=== PATIENT | female | born 1945 | race Caucasian/White ===

== ENCOUNTER 2017-08-25 11:37 | Emergency (ER) | payer MEDICARE ==
[~2017-08-25] VITALS: Ht 168.9 cm; Wt 88.0 kg
[~2017-08-25 11:37] MED LIST: LEVOTHYROXIN25 MCG PO; LIPITOR10 MG PO; OMEPRAZOLE20 MG PO
[2017-08-25] MEDS ORDERED: LEVOTHYROXIN50 MCG PO (13:37)
[2017-08-25] MEDS ORDERED: MELOXICAM15 MG PO (13:38)
[2017-08-25] MEDS ORDERED: ATORVASTATIN CA10 MG PO (13:38)
[2017-08-25] MEDS ORDERED: CEPHALEXIN500 M1 PO (14:06)
[2017-08-25 14:25] VITALS: BP 129/80
== END 2017-08-25 14:28 | disposition home or self-care (01) ==
LOC: ED 11:37
DX: L03.116 Cellulitis of left lower limb (principal); R22.42 Localized swelling, mass and lump, left lower limb; M79.605 Pain in left leg; E78.5 Hyperlipidemia, unspecified; Z98.890 Other specified postprocedural states

== ENCOUNTER 2020-03-21 07:26 | Day surgery (SDC) | payer MEDICARE ==
--- NOTE | 2020-03-20 10:21 | NUR ---
PER DR HOWELL THE U/S SHOWED LEFT AXILLARY LYMPH NODE AND WANTS TO PROCEED PREVIOUSLY DISCUSSED. I ADVISED THE PATIENT THE SAME. SHE STATED SHE UNDERSTOOD.
[~2020-03-21 07:26] MED LIST changes: +ATORVASTATIN CA10 MG PO; +BRIMONIDINE0.2 % OU; +BUPROPION150 M3 PO; +CEPHALEXIN500 M1 PO; +CYANOCOBAL1000 MCG/M IM; +DORZOLAMIDE HCL/1 ML OU; +LEVOTHYROXIN50 MCG PO; +MELOXICAM15 MG PO; +PRESERVISION AREDS 2 PO; +TRAZODONE50 MG PO; +XALATAN 0.005%2.5 ML OU
[2020-03-21] MEDS ORDERED: PERCOCET 5/325M1 TAB PO (09:37)
[2020-03-21 10:03] VITALS: BP 133/65
== END 2020-03-21 10:19 | disposition home or self-care (01) ==
LOC: ORM 07:26
PROVIDERS: ATTEND Surgery
PROC: 0HBU0ZZ Excision of Left Breast, Open Approach (ICD-10-PCS; principal; 2020-03-21)
DX: C44.591 Other specified malignant neoplasm of skin of breast (principal); E03.9 Hypothyroidism, unspecified; E78.5 Hyperlipidemia, unspecified; F41.9 Anxiety disorder, unspecified; Z20.828 Contact with and (suspected) exposure to other viral communicable diseases
CPT/HCPCS: J0131; J1100

== ENCOUNTER 2022-10-08 03:28 | Emergency (ER) | payer MEDICARE ==
[~2022-10-08] VITALS: Ht 165.1 cm; Wt 84.0 kg
[~2022-10-08 03:28] MED LIST changes: +AEROCHAMBER PLUS IN; +ALBUTEROL SUL0.083 % IN; +ALBUTEROL1 IN; +IPRATROPIUM/ IN; +LASIX 20 MG TAB20 MG PO; +LEXAPRO10 MG PO; +LEXAPRO20 MG PO; +LEXAPRO5 MG PO; +MEDDOSEPAK PO; +NEBULIZER IN; +NEBULIZER KIT/TUBING IN; +NEURONTIN100 MG PO; +NORVASC5 M1 PO; +PERCOCET 5/325M1 TAB PO; +SPIRIVA HANDIHALER IN; +TRAZODONE100 MG PO; +VENTOLIN HFA IN
[2022-10-08 04:37] LABS: BASO% 0.3 % (0-3); EOS% 6.3 % (0-8); HEMATOCRIT 43.7 % (37.0-47.0); HEMOGLOBIN 13.8 g/dl (12.0-16.0); IMMATURE GRANULOCYTES 0.9 % (0.0-5.0); LYMPH% 23.4 % (15-41); MEAN CELL VOLUME 107.4 fL CALC (80.0-100.0); MEAN CORPUSCULAR HGB 33.9 pG CALC (26.0-32.0); MEAN CORPUSCULAR HGB CONC 31.6 g/dL CAL (32.0-36.0); MONO% 8.7 % (2-13); NEUT# 4.19 thou/uL (2.00-7.15); NEUT% 60.4 % (42-76); RED BLOOD COUNT 4.07 mill/uL (4.20-5.60); RED CELL DISTRI WIDTH 13.2 % (11.5-15.5)
[2022-10-08 04:40] LABS: URINE BILIRUBIN - DIPSTICK NEGATIVE (NEGATIVE); URINE BLOOD DIPSTICK SMALL (NEGATIVE); URINE COLOR YELLOW; URINE GLUCOSE - DIPSTICK NEGATIVE (NEGATIVE); URINE KETONE NEGATIVE (NEGATIVE); URINE PROTEIN - DIPSTICK NEGATIVE (NEG-TRACE); URINE UROBILINOGEN - DIPSTICK 0.2 E.U./dL (0.2)
[2022-10-08 04:47] LABS: URINE BACTERIA FEW hpf; URINE EPITHELIAL CELLS FEW EPI/hpf (0-FEW); URINE LEUK ESTERASE NEGATIVE (NEGATIVE); URINE NITRITE - DIPSTICK NEGATIVE (Negative); URINE WBC 0-2 WBC/hpf (0-5)
[2022-10-08 04:52] LABS: ALBUMIN 4.2 g/dL (3.2-5.0); ALKALINE PHOSPHATASE 73 u/l (38-126); ANION GAP 11 (6-22 (CALC)); BUN 21 mg/dL (8-23); BUN/CREATININE RATIO 35 (12-20 (CALC)); CARBON DIOXIDE 29 mmol/l (22-30); CHLORIDE 103 mmol/l (95-108); CREATININE 0.6 mg/dL (0.5-1.0); GFR FOR AFR.AMER. > 60 ML/MIN (>=60 (CALC)); GFR OTHER RACES > 60 ML/MIN (>=60 (CALC)); POTASSIUM 4.1 mmol/l (3.5-5.1); SGOT/AST 34 u/l (9-36); SODIUM 138 mmol/l (137-146); TOTAL PROTEIN 7.4 g/dL (6.3-8.2)
[2022-10-08 04:54] LABS: BILIRUBIN, TOTAL 0.6 mg/dL (0.02-1.3)
[2022-10-08] MEDS ORDERED: MEDDOSEPAK PO (06:07)
[2022-10-08] MEDS ORDERED: ZITHROMAX250 MG PO (06:07)
[2022-10-08 06:27] VITALS: BP 143/69
== END 2022-10-08 06:47 | disposition home or self-care (01) ==
LOC: ED 03:28
PROVIDERS: Emergency Medicine
DX: J44.1 Chronic obstructive pulmonary disease with (acute) exacerbation (principal); E03.9 Hypothyroidism, unspecified; E78.5 Hyperlipidemia, unspecified; F41.9 Anxiety disorder, unspecified; Z20.822 Contact with and (suspected) exposure to COVID-19

== ENCOUNTER 2023-06-12 11:43 | Inpatient (IN) | payer MEDICARE ==
[~2023-06-12] VITALS: Ht 167.6 cm; Wt 87.2 kg
[2023-06-12] VITALS (11 sets, daily range): BP systolic 114–144; BP diastolic 62–85
[~2023-06-12 11:43] MED LIST changes: +AZITHROMYCIN500 MG PO; +IPRATROPIU0.5 MG/3 M IN; +LASIX20 MG PO; +LISINOPRIL5 MG PO; +LORATADINE10 M1 PO; +MONTELUKAST SOD10 MG PO; +OS-CAL 500500 M1 PO; +PANTOPRAZOLE SO40 M1 PO; +POTASSIUM CHLO10 MEQ PO; +PREDNISONE10 MG PO; +PULMICORT0.5 MG; +VITAMIN B-121000 MCG PO; +ZITHROMAX250 MG PO; +[UNRECOGNIZED DRUG - OTHER] IN
[2023-06-12 12:30] LABS: BASO% 0.4 % (0-3); EOS% 2.4 % (0-8); HEMATOCRIT 34.4 % (37.0-47.0); IMMATURE GRANULOCYTES 0.6 % (0.0-5.0); LYMPH% 27.1 % (15-41); MEAN CELL VOLUME 107.8 fL CALC (80.0-100.0); MEAN CORPUSCULAR HGB 34.5 pG CALC (26.0-32.0); MONO% 13.2 % (2-13); NEUT# 2.99 thou/uL (2.00-7.15); NEUT% 56.3 % (42-76); RED BLOOD COUNT 3.19 mill/uL (4.20-5.60)
[2023-06-12 12:31] LABS: ALBUMIN 3.7 g/dL (3.2-5.0); ALKALINE PHOSPHATASE 181 u/l (38-126); ANION GAP 9 (6-22 (CALC)); BILIRUBIN, TOTAL 0.4 mg/dL (0.02-1.3); BUN 19 mg/dL (8-23); BUN/CREATININE RATIO 27 (12-20 (CALC)); CARBON DIOXIDE 31 mmol/l (22-30); CHLORIDE 106 mmol/l (95-108); CREATININE 0.7 mg/dL (0.5-1.0); GFR FOR AFR.AMER. > 60 ML/MIN (>=60 (CALC)); GFR OTHER RACES > 60 ML/MIN (>=60 (CALC)); POTASSIUM 4.2 mmol/l (3.5-5.1); SGOT/AST 33 u/l (9-36); SODIUM 141 mmol/l (137-146); TOTAL PROTEIN 7.2 g/dL (6.3-8.2)
[2023-06-13] VITALS (7 sets, daily range): BP systolic 113–162; BP diastolic 59–87
[2023-06-13 05:57] LABS: BASO% 0.1 % (0-3); HEMATOCRIT 31.7 % (37.0-47.0); HEMOGLOBIN 10.4 g/dl (12.0-16.0); IMMATURE GRANULOCYTES 0.3 % (0.0-5.0); MEAN CELL VOLUME 105.3 fL CALC (80.0-100.0); MEAN CORPUSCULAR HGB 34.6 pG CALC (26.0-32.0); MEAN CORPUSCULAR HGB CONC 32.8 g/dL CAL (32.0-36.0); MONO% 4.8 % (2-13); NEUT# 5.92 thou/uL (2.00-7.15); NEUT% 78.8 % (42-76); RED BLOOD COUNT 3.01 mill/uL (4.20-5.60); RED CELL DISTRI WIDTH 12.6 % (11.5-15.5)
[2023-06-13 06:26] LABS: ANION GAP 8 (6-22 (CALC)); BUN 17 mg/dL (8-23); BUN/CREATININE RATIO 28 (12-20 (CALC)); CARBON DIOXIDE 27 mmol/l (22-30); CHLORIDE 107 mmol/l (95-108); CREATININE 0.6 mg/dL (0.5-1.0); GFR FOR AFR.AMER. > 60 ML/MIN (>=60 (CALC)); GFR OTHER RACES > 60 ML/MIN (>=60 (CALC)); POTASSIUM 3.6 mmol/l (3.5-5.1); SODIUM 138 mmol/l (137-146)
[2023-06-14 03:29] VITALS: BP 110/54
[2023-06-14 05:12] LABS: BASO% 0.1 % (0-3); HEMATOCRIT 31.9 % (37.0-47.0); HEMOGLOBIN 10.5 g/dl (12.0-16.0); IMMATURE GRANULOCYTES 0.3 % (0.0-5.0); LYMPH% 15.9 % (15-41); MEAN CELL VOLUME 106.3 fL CALC (80.0-100.0); MEAN CORPUSCULAR HGB CONC 32.9 g/dL CAL (32.0-36.0); MONO% 2.7 % (2-13); NEUT# 7.06 thou/uL (2.00-7.15)
[2023-06-14 05:20] LABS: ANION GAP 13 (6-22 (CALC)); BUN 23 mg/dL (8-23); BUN/CREATININE RATIO 36 (12-20 (CALC)); CARBON DIOXIDE 23 mmol/l (22-30); CHLORIDE 106 mmol/l (95-108); CREATININE 0.6 mg/dL (0.5-1.0); GFR FOR AFR.AMER. > 60 ML/MIN (>=60 (CALC)); GFR OTHER RACES > 60 ML/MIN (>=60 (CALC)); POTASSIUM 3.8 mmol/l (3.5-5.1); SODIUM 139 mmol/l (137-146)
[2023-06-14 06:59] VITALS: BP 126/73
[2023-06-14 10:33] VITALS: BP 122/67
[2023-06-14 15:01] VITALS: BP 105/59
[2023-06-14 19:08] VITALS: BP 108/62
[2023-06-14 23:05] VITALS: BP 116/61
[2023-06-15 04:24] VITALS: BP 144/78
[2023-06-15 04:57] VITALS: BP 144/78
[2023-06-15 05:29] LABS: BASO% 0.1 % (0-3); HEMATOCRIT 32.7 % (37.0-47.0); HEMOGLOBIN 10.5 g/dl (12.0-16.0); IMMATURE GRANULOCYTES 0.7 % (0.0-5.0); LYMPH% 15.1 % (15-41); MEAN CELL VOLUME 106.5 fL CALC (80.0-100.0); MEAN CORPUSCULAR HGB 34.2 pG CALC (26.0-32.0); MEAN CORPUSCULAR HGB CONC 32.1 g/dL CAL (32.0-36.0); MONO% 4.5 % (2-13); NEUT# 8.47 thou/uL (2.00-7.15); NEUT% 79.6 % (42-76); RED BLOOD COUNT 3.07 mill/uL (4.20-5.60)
[2023-06-15 05:49] LABS: ANION GAP 11 (6-22 (CALC)); BUN 24 mg/dL (8-23); BUN/CREATININE RATIO 36 (12-20 (CALC)); CHLORIDE 102 mmol/l (95-108); CREATININE 0.7 mg/dL (0.5-1.0); GFR FOR AFR.AMER. > 60 ML/MIN (>=60 (CALC)); GFR OTHER RACES > 60 ML/MIN (>=60 (CALC)); POTASSIUM 3.6 mmol/l (3.5-5.1); SODIUM 140 mmol/l (137-146)
[2023-06-15 05:57] LABS: CARBON DIOXIDE 31 mmol/l (22-30)
[2023-06-15 07:32] VITALS: BP 144/79
[2023-06-15 10:51] VITALS: BP 127/66
[2023-06-15] MEDS ORDERED: AMLODIPINE BESYL5 MG PO (14:33)
[2023-06-15] MEDS ORDERED: MEDDOSEPAK PO (14:35)
[2023-06-15] MEDS ORDERED: OMNI-PAC300 MG PO (14:35)
== END 2023-06-15 15:32 | DRG 192 ==
LOC: ED 11:43 → ED-I 15:04 → ED 15:21 → MS2 15:22
PROVIDERS: Family Medicine; ADMIT Student in an Organized Health Care Education/Training Program; ATTEND Student in an Organized Health Care Education/Training Program
DX: J44.1 Chronic obstructive pulmonary disease with (acute) exacerbation (principal); I11.0 Hypertensive heart disease with heart failure; I50.9 Heart failure, unspecified; R05.3 Chronic cough; T46.4X5A Adverse effect of angiotensin-converting-enzyme inhibitors, initial encounter; E03.9 Hypothyroidism, unspecified; E78.5 Hyperlipidemia, unspecified; F41.9 Anxiety disorder, unspecified; T50.1X6A Underdosing of loop [high-ceiling] diuretics, initial encounter; Z91.128 Patient's intentional underdosing of medication regimen for other reason; Z87.891 Personal history of nicotine dependence; Z99.81 Dependence on supplemental oxygen; Z20.822 Contact with and (suspected) exposure to COVID-19
CPT/HCPCS: J1650; J3475